=== PATIENT | male | born 1955 | race Caucasian/White ===

== ENCOUNTER 2024-08-23 18:44 | Emergency (ER) | payer OTHER, MEDICARE, SELFPAY ==
[2024-08-23 18:47] VITALS: BP 149/84; PULSE 89; RESP 16; TEMP 36.7; O2SAT 96; BMI 33.1
--- NOTE | 2024-08-23 19:09 | CTR_ITS ---
PROCEDURE INFORMATION: Exam: CT Head Without Contrast Exam date and time: 08/23/2024 7:56 PM Age: 69 years old Clinical indication: Injury or trauma; Blunt trauma (contusions or hematomas); C/O persistent head and neck pain post approximate five foot fall three days ago. History of CVA. ; Additional info: Fall head injury TECHNIQUE: Imaging protocol: Computed tomography of the head without contrast. Radiation optimization: All CT scans at this facility use at least one of these dose optimization techniques: automated exposure control; mA and/or kV adjustment per patient size (includes targeted exams where dose is matched to clinical indication); or iterative reconstruction. COMPARISON: No relevant prior studies available. RADIATION DOSE METRICS: Total DLP (mGy-cm): 1139.94 FINDINGS: Brain: No acute intracranial hemorrhage, mass effect or midline shift. 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 Left frontal encephalomalacia. Cerebral ventricles: Ex vacuo expansion of the ventricles due to volume loss. Paranasal sinuses: Visualized sinuses are unremarkable. No fluid levels. Mastoid air cells: Visualized mastoid air cells are well aerated. Bones: No acute bony findings. Soft tissues: Unremarkable. CT/CT head wo con* [id number] IMPRESSION: No acute intracranial findings.
--- NOTE | 2024-08-23 19:09 | CTR_ITS ---
PROCEDURE INFORMATION: Exam: CT Cervical Spine Without Contrast Exam date and time: 08/23/2024 7:59 PM Age: 69 years old Clinical indication: Injury or trauma; Blunt trauma; Prior surgery; Surgery date: 6+ months; Surgery type: Cervical soft tissue. Patient unable to specify. C/O persistent head and neck pain post approximate five foot fall three days ago. History of CVA. ; Additional info: Pain, trauma TECHNIQUE: Imaging protocol: Computed tomography of the cervical spine without contrast. Radiation optimization: All CT scans at this facility use at least one of these dose optimization techniques: automated exposure control; mA and/or kV adjustment per patient size (includes targeted exams where dose is matched to clinical indication); or iterative reconstruction. COMPARISON: CT head wo con* [id number] 08/23/2024 7:56 PM RADIATION DOSE METRICS: Total DLP (mGy-cm): 833.07 FINDINGS: Bones: No acute fracture. No traumatic listhesis. Multilevel degenerative changes. No severe spinal canal narrowing. Lungs: Lung apices are normal. Soft tissues: Unremarkable. CT/CT cervical spin wo con* [id number] IMPRESSION: No acute cervical spine findings.
--- NOTE | 2024-08-23 19:10 | XRR_ITS ---
PROCEDURE INFORMATION: Exam: XR Left Shoulder Exam date and time: 08/23/2024 7:42 PM Age: 69 years old Clinical indication: Left; Lt shoulder pain post fall x 3 days ago; Limited rom TECHNIQUE: Imaging protocol: Radiologic exam of the left shoulder. Views: 2 or more views. COMPARISON: No relevant prior studies available. FINDINGS: Bones/joints: No acute fracture or dislocation. Mild DJD. Soft tissues: No radiopaque foreign body. XR/XR shoulder LT min 2V* [id number] IMPRESSION: No acute bony findings.
[2024-08-23] MEDS: tetanus-dipt-pertussis 0.5 mL SDV IM (20:08)
[2024-08-23] MEDS: ketorolac 10 mg Tablet PO (20:08)
[2024-08-23 20:16] VITALS: BP 155/95; PULSE 84; RESP 16; O2SAT 96
--- NOTE | 2024-08-23 21:54 | ED_ITS ---
HPI - Extremity Problem General: Chief complaint: Extremity Injury, Upper Stated complaint: fall left shoulder, head, leg injury Time Seen by Provider: 08/23/24 19:18 History of Present Illness: Ari Downey is a 69-year-old man that presents to the emergency department today after a fall from standing last night. Patient reports he was walking up some stairs when he missed a step and tumbled 5 feet. He reports that he landed on his left shoulder and struck the left brow on the ground. He denies loss of consciousness. He denies any anticoagulation/antiplatelet therapy. Patient states he came primarily for his left shoulder pain where now it is restricted range of motion He is neurovascularly intact and has no open wounds. Related Data Previous Rx's ?Medication ?Instructions ?Recorded naproxen sodium 375 mg 375 mg PO DAILY #7 tabs 08/09 11/02 tablet,extended release 24 hr mphase Allergies Allergy/AdvReac Type Severity Reaction Status Date / Time No Known Allergies Allergy Verified 08/23/24 18:56 Review of Systems General: Reports: 10 or more systems reviewed and unremarkable except in HPI and below Physical Exam Const: COMMON NORMALS: no acute distress, patient oriented x3 and alert GENERAL APPEARANCE: cooperative ORIENTATION/CONSCIOUSNESS: Yes awake, Yes oriented to person, Yes oriented to place and Yes oriented to time HENMT: COMMON NORMALS: normocephalic HEAD & SCALP: normocephalic, abrasion (Left brow) and contusion (Left brow) FACE & SINUS: normal facial exam MOUTH: Normal oral and palatal mucosa present THROAT: posterior oropharynx normal Eye: COMMON NORMALS: Equal, round and reactive pupils present, EOMs intact bilaterally, conjunctivae normal and no scleral icterus GENERAL EYE: appearance normal, both eyes and all related structures ALIGNMENT: Yes alignment normal PERIORBITAL: periorbital findings normal CONJUNCTIVA: Yes conjunctivae normal PUPIL: Yes Equal, round and reactive pupils present Neck/C-Spine: COMMON NORMALS: full ROM GENERAL: Yes normal visual inspection Lymph: LYMPHATIC: no lymphadenopathy noted Chest: COMMONS NORMALS: normal inspection of the chest Breast/axilla inspection: Yes no chest deformity, asymmetry, normal contours, no nodules, masses, tenderness Resp: COMMON NORMALS: normal respiratory effort, No retractions, No use of accessory muscles and clear to auscultation bilaterally EFFORT & INSPECTION: Yes able to speak in complete sentences and Yes symmetric chest movement AUSCULTATION: clear to auscultation bilaterally Cardio: COMMON NORMALS: regular rate, regular rhythm and Peripheral pulses 2+ throughout RATE: regular rate RHYTHM: regular rhythm PERIPHERAL PULSES: Peripheral pulses 2+ throughout GI: COMMON NORMALS: Normal to inspection, nondistended, normoactive bowel sounds present, Soft to palpation, non-tender and No hepatosplenomegaly present INSPECTION: Yes normal to inspection AUSCULTATION: Yes normoactive bowel sounds PALPATION: Yes Soft to palpation and Yes No hepatosplenomegaly present RECTAL EXAM: Yes deferred : COMMON NORMALS: Yes no CVA tenderness BLADDER/KIDNEY EXAM: Yes no CVA tenderness Back/Pelvis: COMMON NORMALS: no CVA tenderness, thoracic and lumbar spine normal to inspection, no thoracic nor lumbar tenderness, thoraco-lumbar ROM normal and straight leg raise negative bilaterally OTHER: Midline nontender to palpation. Extremity: COMMON NORMALS: normal to inspection GENERAL: Yes normal exam except as noted OTHER: Left upper extremity: Skin is clean dry and intact Tenderness to palpation over the left shoulder. It does not radiate. He has good range of motion of the elbow wrist and fingers but decreased range of motion?stiffness to the left shoulder due to pain. Neuro: COMMON NORMALS: patient oriented x3 SENSORIUM/ORIENTATION: Yes alert, Yes oriented to person, Yes oriented to place and Yes oriented to time CRANIAL NERVES: Yes CN normal except as noted Psych: COMMON NORMALS: mental status grossly normal, Normal thought process present, cooperative, activity/motor behavior normal, denies homicidal ideation and denies suicidal ideation THOUGHT PROCESS: Normal thought process present Skin: COMMON NORMALS: no rashes or lesions noted, no wounds and turgor normal GENERAL SKIN EXAM: no rashes or lesions noted and turgor normal Course Vital Signs: Vital signs: Vital Signs Temperature 98.0 F 08/23/24 18:47 Pulse Rate 84 08/23/24 20:16 Respiratory Rate 16 08/23/24 20:16 Blood Pressure 155/95 08/23/24 20:16 Pulse Oximetry 96 08/23/24 20:16 Oxygen Delivery Me thod Room Air 08/23/24 20:16 MDM - Extremity (Nontraumatic) Medical Decision Making Patient was evaluated in the emergency department today for head trauma and left shoulder trauma after a fall from stairs He underwent a CT head, CT cervical spine and left shoulder x-ray. CT head and CT cervical spine were unremarkable. The left shoulder x-ray was unremarkable Patient is complaining of considerable pain in the shoulder and has restricted range of motion secondary to pain. He is neurovascularly intact. At this time no further diagnostics are warranted. Patient does have an orthopedic surgeon of record, Dr. Jerome. I have advised them that they should contact him Sunday or early week to set up follow-up if his symptoms are not improving. For now I am going to discharge patient home with nonsteroidal anti-inflammatory drugs. He may return to work without restrictions although I do not know if he will tolerate it. Lab Data Radiology Impressions Cervical Spine CT 08/23/24 19:09 IMPRESSION: No acute cervical spine findings. Head CT 08/23/24 19:09 IMPRESSION: No acute intracranial findings. Shoulder X-Ray 08/23/24 19:10 IMPRESSION: No acute bony findings. All radiology interpretation(s) finalized by discharge Discharge Plan Discharge Patient Disposition: Home Clinical Impression: Abrasion, Contusion, Left shoulder pain Condition: Stable Prescriptions: New naproxen sodium 375 mg tablet, ER multiphase 24 hr 375 mg PO DAILY Qty: 7 0RF Discharge Orders: Discharge ED (Routine); Ordered 08/23/24 Ordered By: Malinda Nagel Discharge Diet: Advance as tolerated Discharge Activity: Resume usual activity Patient Instructions: Shoulder Pain (ED), Exercise Safety (ED), Pain Management Activity Restrictions/Additional Instructions: Please call Dr. Jerome to set up follow-up if you are not improving. Please return to the emergency department as needed for new concerning or worsening symptoms I have provided you with Naprosyn or naproxen that you are going to take once a day for the next 7 days. Further pain management will be completed by your primary care or orthopedic provider of choice Print Language: Beninese Coding Level of Care Code ED [place] for Trip Dickerson
[2024-08-23 22:28] VITALS: BP 143/69; PULSE 78; O2SAT 99
== END 2024-08-23 22:30 | disposition home or self-care (01) ==
PROVIDERS: Emergency Provider Nurse Practitioner
DX: S40.012A Contusion of left shoulder, initial encounter (principal); W19.XXXA Unspecified fall, initial encounter; Z23 Encounter for immunization
CPT/HCPCS: 70450; 72125; 73030; 90471; 90715; 99284; J9999

== ENCOUNTER → 2024-09-17 12:48 | Outpatient (BNVA) | payer OTHER, SELFPAY | PROVIDERS: PCP Nurse Practitioner Family; Visit Provider Specialist | DX: S49.92XA Unspecified injury of left shoulder and upper arm, initial encounter (principal); X58.XXXA Exposure to other specified factors, initial encounter | CPT/HCPCS: 73030 ==

== ENCOUNTER 2024-09-30 15:24 | Outpatient (CLI) | payer OTHER, SELFPAY ==
--- NOTE | 2024-09-30 16:00 | MR_ITS ---
WS: [id number] MRI LEFT SHOULDER HISTORY: left shoulder pain, fall. COMPARISON: Radiograph 09/17/2024 TECHNIQUE: Multiplanar sequences of the shoulder joint are submitted. Severe AC joint arthritis. Fluid and increased T2 signal throughout the AC joint without widening. There is a small amount of edema in the distal clavicle. Enthesopathy involving the distal undersurface of the acromion. There is remodeling of the undersurface of the acromion with contact on the humeral head which is high riding. Intra-articular body measuring 6 mm in the AC joint. Moderate amount of fluid in the subacromial and subdeltoid bursa. No os acromion. Small caliber biceps tendon in the bicipital groove. There is increased fluid in the biceps tendon sheath. High riding humeral head articulates with the acromion with remodeling of the acromion. Marked narrowing of the glenohumeral joint. Mild osteophytic ridging around the humeral head. Edema in the subscapularis and supraspinatus muscles. Supraspinatus tendon is completely torn and retracted to the medial humeral head. Loss of the normal subscapularis tendon several centimeters proximal to the insertion site. The distal tendon is thin caliber with increased T2 signal with at least a partial tear. There is a small intra-articular body measuring 8 mm adjacent to the subscapularis tendon near the glenoid neck. No significant muscle atrophy. There is a small amount of edema adjacent to the infraspinatus muscle. Abnormal signal in the distal tendon and loss of the normal architecture of the tendon. At least partial tear of the distal infraspinatus tendon without retraction. Suspect superior labral tear. The labrum is not well visualized throughout its entirety. No acute fracture. MR/MR shoulder LT wo con* [id number] IMPRESSION: 1. Severe AC joint arthropathy with fluid through the AC joint and a small [place] unt of edema in the distal clavicle which may be posttraumatic or erosions. 2. High riding humeral head abutting the undersurface of the acromion. Remodel ing of the acromion suggesting there is a component of chronicity. 3. Moderate amount of edema in the subscapularis and supraspinatus muscles and a small amount of edema in the infraspinatus muscles. May be posttraumatic or due to neuritis. 4. Complete tear of the supraspinatus tendon with retraction to the medial hum eral head. 5. Diffusely abnormal signal throughout a large portion of the subscapularis t endon. Loss of the normal architecture in the subscapularis tendon at the level of the glenoid neck. Tendon is not visualized and may be completely torn. Ther e is an additional partial tear in the distal subscapularis tendon. 6. Partial tear distal infraspinatus tendon without retraction. 7. Small caliber biceps tendon in the bicipital groove with tenosynovitis. 8. Superior labral tear. 9. Several well-circumscribed bodies are noted. A circumscribed body adjacent to the distal clavicle and also adjacent to the subscapularis tendon at the lev el of the glenoid neck.
== END 2024-09-30 15:25 | disposition home or self-care (01) ==
LOC: RAD 15:25
PROVIDERS: PCP Nurse Practitioner Family; Visit Provider Specialist
DX: S46.812A Strain of other muscles, fascia and tendons at shoulder and upper arm level, left arm, initial encounter (principal); X58.XXXA Exposure to other specified factors, initial encounter; M12.812 Other specific arthropathies, not elsewhere classified, left shoulder; R93.6 Abnormal findings on diagnostic imaging of limbs; M75.122 Complete rotator cuff tear or rupture of left shoulder, not specified as traumatic; M65.912 Unspecified synovitis and tenosynovitis, left shoulder; M75.82 Other shoulder lesions, left shoulder; M25.712 Osteophyte, left shoulder; M67.814 Other specified disorders of tendon, left shoulder
CPT/HCPCS: 73221